=== PATIENT | female | born 1985 | race Two or more races ===

== ENCOUNTER 2024-01-09 17:34 | Emergency (ER) | payer MEDICAID, OTHER ==
[~2024-01-09] VITALS: Ht 154.9 cm; Wt 74.4 kg
[2024-01-09 18:12] VITALS: BP 128/92; PULSE 100; RESP 16; O2SAT 100
[2024-01-09] MEDS: DexAMETHasone SOD PHOS 10MG/1ML VIAL INJ IM ONE (18:54)
[2024-01-09] MEDS ORDERED: MECL-90 PO (19:09)
== END 2024-01-09 19:11 | disposition home or self-care (01) ==
LOC: ER 17:34
DX: R42 Dizziness and giddiness (principal); H69.92 Unspecified Eustachian tube disorder, left ear
CPT/HCPCS: 96372; 99283; J1100

== ENCOUNTER 2024-01-12 22:09 | Emergency (ER) | payer MEDICAID ==
[~2024-01-12] VITALS: Ht 154.9 cm; Wt 76.3 kg
[~2024-01-12 22:09] MED LIST: MECL-90 PO
[2024-01-12 22:32] VITALS: BP 122/54; PULSE 84; RESP 20; O2SAT 98
== END 2024-01-13 | disposition home or self-care (01) ==
LOC: ER 22:09
DX: R42 Dizziness and giddiness (principal); E86.0 Dehydration; Z59.12 Inadequate housing utilities
CPT/HCPCS: 82962; 93005